=== PATIENT | female | born 1940 | race Caucasian/White ===

== ENCOUNTER 2019-12-22 16:01 | Inpatient (IN) | payer MEDICARE, BC ==
[2019-12-22] MEDS ORDERED: Pantoprazole 40 MG Tab.CR PO PRN (16:40)
--- NOTE | 2019-12-22 17:02 | PCM.HP.2 ---
H&P History of Present Illness - General Date of Service: 12/22/19 Admit Problem/Dx: Admission Diagnosis/Problem Admission Diagnosis/Problem CHF, Congestive heart failure Source of Information: Patient, Provider - History of Present Illness Initial Comments - Free Text/Narative: Kisha is a 79 yr old female admitted from [facility] as direct admission for suspected CHF. She underwent CABG x 2 on December 06, was discharged on December 15. Has had increasing shortness of breath, wheezing but no coughing. No fevers, chills, sore throat. Runny nose but denies seasonal allergies. Covid negative at [facility] in past 2 weeks. Has some left side chest pain since surgery, states not sure if its a suture but feels a pulling sensation. Denies any abdominal pain, nausea, vomiting, diarrhea. Her bowel movements has been irregular since she was in the hospital. Urinating normally. Her weight is up 30 lbs from clinic, edema in her legs and abdomen. Scars from recent CABG. Dry mouth. Had Lasix increased yesterday but hadn't started the extra dose yet, was seen by Dr Perkins in clinic today and sent over after exam. - Related Data Allergies/Adverse Reactions: Allergies Allergy/AdvReac Type Severity Reaction Status Date / Time Penicillins Allergy Hives Verified 12/22/19 17:08 Home Medications: Home Meds Aspirin 325 mg PO DAILY 01/27/15 [History] metFORMIN HCl [Metformin HCl] 1,000 mg PO BIDMEALS 01/27/15 [History] Cholecalciferol (Vitamin D3) [Vitamin D] 5,000 unit PO DAILY 12/22/19 [History] Cinnamon Bark [Cinnamon] 1,000 mg PO BID 12/22/19 [History] Furosemide 40 mg PO BID@,18 12/22/19 [History] Insulin Aspart [NovoLOG] 0 - 12 unit SUBCUT TIDMEALS PRN 12/22/19 [History] Insulin Degludec [Tresiba Flextouch U-200] 35 units SUBCUT BEDTIME 12/22/19 [ History] Lutein 25mg 25 mg PO DAILY 12/22/19 [History] Metoprolol Tartrate 25 mg PO BID 12/22/19 [History] Pantoprazole Sodium [Protonix] 40 mg PO DAILY PRN 12/22/19 [History] Rosuvastatin [Crestor] 20 mg PO DAILY 12/22/19 [History] Vitamin B Complex [B Complex] 1 tab PO DAILY 12/22/19 [History] Zinc Gluconate [Zinc] 50 mg PO DAILY 12/22/19 [History] buPROPion [Wellbutrin SR] 150 mg PO DAILY 12/22/19 [History] Past Medical History Cardiovascular History: Reports: Bypass (12/07/2019), High Cholesterol, Hypertension Other Neuro History: PATIENT FREQUENTLY ASKS SPOUSE QUESTIONS TO HX. SEEMS HARD TO RECALL EVENTS. Endocrine/Metabolic History: Reports: Diabetes, Type II, IDDM - Past Surgical History Cardiovascular Surgical History: Reports: Coronary Artery Bypass (x2(12/07/2019)) H&P Review of Systems - Review of Systems: Review Of Systems: Comprehensive ROS is negative, except as noted in HPI. Exam - Exam Exam: See Below - Exam General: Alert, Oriented, Cooperative, Mild Distress (Mild respiratory distress , audible wheezing) HEENT: PERRLA, Conjunctiva Clear, EOMI, Hearing Intact, Nares Patent, Normal Nasal Septum, Posterior Pharynx Clear, TMs Clear, Other (Dry mucus membranes). No: Rhinitis Neck: Supple, Trachea Midline. No: Lymphadenopathy Lungs: Decreased Breath Sounds (Bibasilar), Crackles (Bibasilar), Rhonchi ( Right basilar), Wheezing (throughout) Cardiovascular: Regular Rate, Regular Rhythm GI/Abdominal Exam: Normal Bowel Sounds, Soft, Non-Tender, No Distention Extremities: Pedal Edema (2+ up to knees, some edema in BLQ of abdomen) Peripheral Pulses: 2+: Radial (L), Radial (R) Skin: Warm, Dry, Intact, Ecchymosis (sternum), Incision (Sternal incision: C/D/I , abdomen surgical scar: C/D/I) Neuro Extensive - Mental Status: Alert, Oriented x3, Normal Mood/Affect, Normal Cognition Neuro Extensive - Motor, Sensory, Reflexes: CN II-XII Intact - Patient Data Lab Results Last 24 hrs: Laboratory Results - last 24 hr 12/22/19 12/22/19 12/22/19 Range/Units 16:25 16:32 16:32 WBC 15.7 H (4.5-12.0) X10-3/uL RBC 3.42 (3.23-5.20) x10(6)uL Hgb 9.7 L (11.5-15.5) g/dL Hct 29.7 L (30.0-51.3) % MCV 86.8 (80-96) fL MCH 28.5 (27.7-33.6) pg MCHC 32.8 (32.2-35.4) g/dL RDW 13.4 (11.5-15.5) % Plt Count 694 H (125-369) X10(3)uL MPV 8.4 (7.4-10.4) fL Add Manual Diff Yes Neutrophils % (Manual) 83 H (46-82) % Lymphocytes % (Manual) 15 (13-37) % Monocytes % (Manual) 2 L (4-12) % Sodium 144 (135-145) mmol/L Potassium 4.3 (3.5-5.3) mmol/L Chloride 104 (100-110) mmol/L Carbon Dioxide 28 (21-32) mmol/L BUN 30 H (7-18) mg/dL Creatinine 1.6 H (0.55-1.02) mg/dL Est Cr Clr Drug Dosing TNP Estimated GFR (MDRD) 31 L (>60) BUN/Creatinine Ratio 18.8 (9-20) Glucose 107 (80-116) mg/dL Calcium 9.3 (8.6-10.2) mg/dL Total Bilirubin 0.3 (0.1-1.3) mg/dL AST 16 (5-25) IU/L ALT 17 (12-36) U/L Alkaline Phosphatase 98 (56-112) IU/L NT-Pro-B Natriuret Pep (<=450) pg/mL Total Protein 7.4 (6.0-8.0) g/dL Albumin 2.7 L (3.2-4.6) g/dL Globulin 4.7 g/dL Albumin/Globulin Ratio 0.6 Urine Color Yellow (YELLOW) Urine Appearance Clear (CLEAR) Urine pH 5.0 (5.0-6.5) Ur Specific [place] 1.015 (1.010-1.025) Urine Protein Negative (NEGATIVE) mg/dL Urine Glucose (UA) Normal (NORMAL) mg/dL Urine Ketones Negative (NEGATIVE) mg/dL Urine Occult Blood Negative (NEGATIVE) Urine Nitrite Negative (NEGATIVE) Urine Bilirubin Negative (NEGATIVE) Urine Urobilinogen Normal (NEGATIVE) mg/dL Ur Leukocyte Esterase Negative (NEGATIVE) Urine RBC 0-5 (0-5) Urine WBC 0-5 (0-5) Ur Squamous Epith Cells Moderate H (NS,R,O) Urine Bacteria Few H (NS) 12/22/19 Range/Units 16:32 WBC (4.5-12.0) X10-3/uL RBC (3.23-5.20) x10(6)uL Hgb (11.5-15.5) g/dL Hct (30.0-51.3) % MCV (80-96) fL MCH (27.7-33.6) pg MCHC (32.2-35.4) g/dL RDW (11.5-15.5) % Plt Count (125-369) X10(3)uL MPV (7.4-10.4) fL Add Manual Diff Neutrophils % (Manual) (46-82) % Lymphocytes % (Manual) (13-37) % Monocytes % (Manual) (4-12) % Sodium (135-145) mmol/L Potassium (3.5-5.3) mmol/L Chloride (100-110) mmol/L Carbon Dioxide (21-32) mmol/L BUN (7-18) mg/dL Creatinine (0.55-1.02) mg/dL Est Cr Clr Drug Dosing Estimated GFR (MDRD) (>60) BUN/Creatinine Ratio (9-20) Glucose (80-116) mg/dL Calcium (8.6-10.2) mg/dL Total Bilirubin (0.1-1.3) mg/dL AST (5-25) IU/L ALT (12-36) U/L Alkaline Phosphatase (56-112) IU/L NT-Pro-B Natriuret Pep 8636 H* (<=450) pg/mL Total Protein (6.0-8.0) g/dL Albumin (3.2-4.6) g/dL Globulin g/dL Albumin/Globulin Ratio Urine Color (YELLOW) Urine Appearance (CLEAR) Urine pH (5.0-6.5) Ur Specific [place] (1.010-1.025) Urine Protein (NEGATIVE) mg/dL Urine Glucose (UA) (NORMAL) mg/dL Urine Ketones (NEGATIVE) mg/dL Urine Occult Blood (NEGATIVE) Urine Nitrite (NEGATIVE) Urine Bilirubin (NEGATIVE) Urine Urobilinogen (NEGATIVE) mg/dL Ur Leukocyte Esterase (NEGATIVE) Urine RBC (0-5) Urine WBC (0-5) Ur Squamous Epith Cells (NS,R,O) Urine Bacteria (NS) Result Diagrams: 12/22/19 16:32 Imaging Impressions Last 24 hrs: CXR: findings called by Dr Forbes, questionable pneumonia/COPD(no history of smoking), CHF better than previous comparison on 12/13 in [place]. - Problem List (1) Shortness of breath SNOMED Code(s): 587396979 ICD Code: R06.02 - SHORTNESS OF BREATH Status: Acute Current Visit: Yes (2) Peripheral edema SNOMED Code(s): 247833683 ICD Code: R60.9 - EDEMA, UNSPECIFIED Status: Acute Current Visit: Yes (3) Weight gain with edema SNOMED Code(s): 8539695 ICD Code: R63.5 - ABNORMAL WEIGHT GAIN; R60.9 - EDEMA, UNSPECIFIED Status: Acute Current Visit: Yes (4) S/P CABG x 2 SNOMED Code(s): 286748928, 047166597, 668825964 ICD Code: Z95.1 - PRESENCE OF AORTOCORONARY BYPASS GRAFT Status: Acute Current Visit: Yes Onset Date: ~12/07/19 (5) Diabetes mellitus SNOMED Code(s): 16248479 ICD Code: E11.9 - TYPE 2 DIABETES MELLITUS WITHOUT COMPLICATIONS Status: Acute Current Visit: Yes Qualifiers: Diabetes mellitus type: type 2 Diabetes mellitus manager terminal insulin use: with manager terminal use (6) Hypertension SNOMED Code(s): 45984545 ICD Code: I10 - ESSENTIAL (PRIMARY) HYPERTENSION Status: Chronic Current Visit: Yes (7) Nonsmoker SNOMED Code(s): 3511038 ICD Code: Z78.9 - OTHER SPECIFIED HEALTH STATUS Status: Chronic Current Visit: Yes Problem List Initiated/Reviewed/Updated: Yes Orders Last 24hrs: Active Orders 24 hr Category Date Time Status Patient Status [ADT] Routine ADT 12/22/19 16:04 Active Accu Check [Blood Glucose Check, Bedside] [RC] Care 12/22/19 16:16 Active QIDACANDBED Antiembolic Devices [RC] .Routine Care 12/22/19 16:03 Active Bedrest Bedside Commode [RC] ASDIRECTED Care 12/22/19 16:51 Active Cardiac Monitoring [RC] CONTINUOUS Care 12/22/19 16:05 Active Height and Weight [RC] DAILY Care 12/22/19 16:03 Active Intake and Output [RC] QSHIFT Care 12/22/19 16:05 Active Oxygen Therapy [RC] PRN Care 12/22/19 16:04 Active Pulse Oximetry [RC] PRN Care 12/22/19 16:05 Active Up With Assistance [RC] ASDIRECTED Care 12/22/19 16:03 Active VTE/DVT Education [RC] Per Unit Routine Care 12/22/19 16:04 Active Vital Signs [RC] Q4H Care 12/22/19 16:04 Active Consistent Carbohydrate Diet [DIET] Diet 12/22/19 Dinner Active Heart Healthy Diet [DIET] Diet 12/22/19 Dinner Active Chest 2V [CR] Routine Exams 12/22/19 16:03 Taken CBC WITH AUTO DIFF [HEME] Routine Lab 12/22/19 16:32 Results COMPREHENSIVE METABOLIC PN,CMP [CHEM] Routine Lab 12/22/19 16:32 Received CULTURE BLOOD [BC] Urgent Lab 12/22/19 16:55 Ordered CULTURE BLOOD [BC] Urgent Lab 12/22/19 16:55 Ordered PRO B-TYPE NATRIUR PEPT,BNPPRO [CHEM] Routine Lab 12/22/19 16:32 Received Aspirin [Ecotrin] Med 12/23/19 09:00 Active 325 mg PO DAILY Doxycycline [Vibramycin] 100 mg Med 12/22/19 17:00 Ordered Sodium Chloride 0.9% [Normal Saline] 100 ml IV Q12HR Furosemide [Lasix] Med 12/22/19 16:43 Active 40 mg IVPUSH BIDDIURETIC Insulin Glarg,Human.Rec.Analog [LantUS Solostar] Med 12/22/19 21:00 Active 35 units SUBCUT BEDTIME Insulin Lispro [HumaLOG] Med 12/22/19 18:00 Active See Protocol SUBCUT TIDMEALS Metoprolol Tartrate [Lopressor] Med 12/22/19 21:00 Active 25 mg PO BID Pantoprazole [ProTONIX] Med 12/22/19 16:40 Active 40 mg PO DAILY PRN Rosuvastatin [Crestor] Med 12/23/19 09:00 Active 20 mg PO DAILY Sodium Chloride 0.9% [Saline Flush] Med 12/22/19 16:03 Active 10 ml FLUSH ASDIRECTED PRN buPROPion [Wellbutrin SR] Med 12/23/19 09:00 Active 150 mg PO DAILY cefTRIAXone [Rocephin] Med 12/22/19 17:00 Ordered 1 gm IVPUSH Q24H Antiembolic Hose [OM.PC] Per Unit Routine Oth 12/22/19 16:05 Ordered Saline Lock Insert [OM.PC] Routine Oth 12/22/19 16:03 Ordered Code Status [Resuscitation Status] Routine Resus Stat 12/22/19 16:51 Ordered Medication Orders Aspirin (Ecotrin) 325 mg PO DAILY [facility]ITA Bupropion HCl (Wellbutrin Sr) 150 mg PO DAILY [facility] Ceftriaxone Sodium (Rocephin) 1 gm IVPUSH Q24H [facility] Furosemide (Lasix) 40 mg IVPUSH BIDDIURETIC [facility] Doxycycline Hyclate 100 mg/ (Sodium Chloride) 100 mls @ 100 mls/hr IV Q12HR [facility] Insulin Glargine (Lantus Solostar) 35 units SUBCUT BEDTIME [facility]QU[facility] Insulin Human Lispro (Humalog) 0 unit SUBCUT TIDMEALS CHIQUITA; Protocol Metoprolol Tartrate (Lopressor) 25 mg PO BID [facility] Pantoprazole Sodium (Protonix) 40 mg PO DAILY PRN PRN Reason: Heartburn Rosuvastatin Calcium (Crestor) 20 mg PO DAILY [facility]QU[facility] Sodium Chloride (Saline Flush) 10 ml FLUSH ASDIRECTED PRN PRN Reason: Keep Vein Open Assessment/Plan Comment:: 1. Admit for inpatient services for suspected CHF s/p CABG 2 weeks ago and possible pneumonia. 2. Lasix 40 mg IV bid, proBNP 8636, daily weights, I&O, cardiac monitoring. Repeat BMP in am, Cr 1.6, K 4.3 3. WBC 15.7, questionable pneumonia on CXR with early CHF, no history of smoking /smoke exposure, platelets 694, will start Rocephin 1 g IV q24h, Doxycycline 100 mg IV q12h(due to Azithromycin shortage to cover for atypical bacteria), blood cultures x 2 pending. 4. Heart Healthy/Consistent carb diet, Accuchecks ac & hs. 5. Lantus 35 units SQ(formulary substitution) and Humalog sliding scale with meals. 6. Bedside commode, up with assistance. 7. Andrea CAAL, lovenox 30 mg sq daily. 8. CODE STATUS: FULL. - Mortality Measure Prognosis:: Poor
--- NOTE | 2019-12-22 17:06 | CR ---
INDICATION: Shortness of breath. Question CHF. COVID negative. Weight gain. CHEST, TWO VIEWS: PA and lateral views of the chest were obtained 12/22/19 and compared with 12/14/19 and 11/14/08. The heart is enlarged and in general the aorta is somewhat tortuous. Overlying evidence of median sternotomy is noted. Overlying EKG leads are noted. Blunting of the posterior sulci is noted with somewhat heavy markings raising question of minimal pneumonia and pleuritis at the lung bases. No gross evidence of CHF is seen. No consolidating pneumonia was identified. However, markings are heavy at the lung bases compatible with bibasilar pneumonia and pleuritis. Findings compatible with COPD are noted including flattened diaphragm leaves from AP diameter and hyperaeration. IMPRESSION: 1. Bibasilar pleural parenchymal changes may be on the basis of pneumonia and pleuritis. 2. COPD. 3. ASHD with post-median sternotomy change. 4. Minimal degenerative changes mid thoracic spine. MTDD
[2019-12-22] MEDS: cefTRIAXone 1 GM Vial IVPUSH SCH (17:33)
[2019-12-22] MEDS: Doxycycline 100 MG in Sodium Chloride 0.9% 100 ML IV SCH (17:33)
[2019-12-22] MEDS: Furosemide 40 MG/4 ML VIAL IVPUSH SCH (17:33)
[2019-12-22] MEDS: Sodium Chloride 0.9% 10 ML Syringe FLUSH PRN (17:34)
[2019-12-22] MEDS: Insulin Lispro 100 Unit/ML 3 ML KwikPen SUBCUT SCH (19:14)
[2019-12-22] MEDS: Enoxaparin 30 MG/0.3 ML Syringe SUBCUT SCH (19:15)
[2019-12-22] MEDS ORDERED: Metoprolol Tartrate 25 MG Tab PO SCH (21:00)
[2019-12-22] MEDS ORDERED: Insulin Glargine,Human Rec. Analog 100 Units/ML 3 ML Pen SUBCUT SCH (21:00)
[2019-12-22 21:54] VITALS: BP 147/79; PULSE 86
[2019-12-23] MEDS ORDERED: Rosuvastatin 20 MG Tab PO SCH (09:00)
[2019-12-23] MEDS ORDERED: Aspirin 325 MG Tab.EC PO SCH (09:00)
[2019-12-23] MEDS ORDERED: buPROPion 150 MG Tab.SR PO SCH (09:00)
== END 2019-12-22 21:02 | DRG 291 ==
LOC: FB.MS 16:01
PROVIDERS: ADMIT Family Medicine; ATTEND Family Medicine
DX: I11.0 Hypertensive heart disease with heart failure (principal); J18.9 Pneumonia, unspecified organism; I50.9 Heart failure, unspecified; E11.9 Type 2 diabetes mellitus without complications; E78.00 Pure hypercholesterolemia, unspecified; Z95.1 Presence of aortocoronary bypass graft; Z79.82 Long term (current) use of aspirin; Z79.4 Long term (current) use of insulin; Z79.899 Other long term (current) drug therapy; Z78.9 Other specified health status
CPT/HCPCS: 36415; 71046; 80053; 81001; 82962; 83880; 85025; 87040; J0696; J1650; J1815; J1815-GY; J1940; J3490; J7050